=== PATIENT | male | born 1955 | race Caucasian/White ===

== ENCOUNTER → 2017-05-23 | Outpatient (CLI) | payer BC | END | disposition home or self-care (01) | LOC: KCIC MRI 14:24 | DX: M47.892 Other spondylosis, cervical region (principal); M48.02 Spinal stenosis, cervical region; M54.12 Radiculopathy, cervical region; M43.23 Fusion of spine, cervicothoracic region; M25.78 Osteophyte, vertebrae; R20.0 Anesthesia of skin | CPT/HCPCS: 72141 ==